=== PATIENT | male | born 1985 | race Caucasian/White ===

== ENCOUNTER 2025-04-09 02:53 | Emergency (ER) | payer SELFPAY ==
[2025-04-09] MEDS: Tetracaine HCl/PF 0.5% 4 ML Bottle EYEBOTH ONE (03:11)
[2025-04-09] MEDS: Fluorescein 1 MG Ophth Strip EYELF ONE (03:12)
[2025-04-09] MEDS ORDERED: Ciprofloxacin 0.3% Ophth Soln 2.5 ML Bottle EYERT ONE (03:12)
[2025-04-09] MEDS: Ofloxacin 0.3% Ophth Soln 5 ML Bottle EYERT ONE (03:41)
== END 2025-04-09 03:46 | disposition home or self-care (01) ==
LOC: MW.ED 02:53
DX: H18.821 Corneal disorder due to contact lens, right eye (principal); H53.8 Other visual disturbances; Z79.899 Other long term (current) drug therapy
CPT/HCPCS: 99283; A9270; J3490